=== PATIENT | female | born 1995 | race Caucasian/White ===

== ENCOUNTER 2016-04-29 23:01 | Emergency (ER) | payer OTHER ==
--- NOTE | 2016-04-29 23:51 | XR ---
EXAMINATION TYPE: XR hand complete LT DATE OF EXAM: 04/29/2016 11:45 PM COMPARISON: NONE HISTORY: Finger pain TECHNIQUE: 3 views FINDINGS: I see no fracture nor dislocation. The little finger appears intact. There are no erosions. IMPRESSION: Negative left hand exam.
--- NOTE | 2016-04-30 00:23 | ED ---
Upper Extremity HPI - General Chief Complaint: Extremity Injury, Upper Stated Complaint: finger pain Time Seen by Provider: 04/29/16 23:29 Source: patient Mode of arrival: ambulatory Limitations: no limitations - History of Present Illness Initial Comments: Patient is a 20 year old female with chief complaint of left 5th finger pain after trying to hand a customer grocery and the bag got caught on her finger and pulled it. She states that her finger is popping in and out of socket. Patient states that she has full range of motion. Denies any peripheral paresthias she states that she can make her finger pop in and out. - Related Data Home Medications Medication Instructions Recorded Confirmed No Known Home Medications [No 04/29/16 04/29/16 Known Home Medications] Allergies Allergy/AdvReac Type Severity Reaction Status Date / Time No Known Allergies Allergy Verified 04/29/16 23:11 Review of Systems ROS Statement: Those systems with pertinent positive or pertinent negative responses have been documented in the HPI. ROS Other: All systems not noted in ROS Statement are negative. Past Medical History Past Medical History: No Reported History History of Any Multi-Drug Resistant Organisms: None Reported Past Surgical History: Adenoidectomy, Tonsillectomy Past Psychological History: No Psychological Hx Reported Smoking Status: Never smoker Past Alcohol Use History: None Reported Past Drug Use History: None Reported General Exam - General Exam Comments Initial Comments: Well appearing 20 year old female, no distress. Limitations: no limitations General appearance: alert, in no apparent distress Head exam: Present: atraumatic, normocephalic, normal inspection Eye exam: Present: normal appearance, PERRL, EOMI. Absent: scleral icterus, conjunctival injection, periorbital swelling ENT exam: Present: normal exam, mucous membranes moist Neck exam: Present: normal inspection. Absent: tenderness, meningismus, lymphadenopathy Respiratory exam: Present: normal lung sounds bilaterally. Absent: respiratory distress, wheezes, rales, rhonchi, stridor Cardiovascular Exam: Present: regular rate, normal rhythm, normal heart sounds. Absent: systolic murmur, diastolic murmur, rubs, gallop, clicks GI/Abdominal exam: Present: soft, normal bowel sounds. Absent: distended, tenderness, guarding, rebound, rigid Extremities exam: Present: normal inspection, full ROM, normal capillary refill. Absent: tenderness, pedal edema, joint swelling, calf tenderness Left Hand Wrist exam: Present: normal inspection, full ROM, other (patient is able to sublux 5th finger. ) Back exam: Present: normal inspection, full ROM Neurological exam: Present: alert, oriented X3, CN II-XII intact Psychiatric exam: Present: normal affect, normal mood Skin exam: Present: warm, dry, intact, normal color. Absent: rash Course Vital Signs 04/29/16 04/30/16 23:08 00:30 Temperature 98.2 F 98.9 F Pulse Rate 93 84 Respiratory 18 16 Rate Blood Pressure 142/74 124/78 O2 Sat by Pulse 99 98 Oximetry Medical Decision Making - Medical Decision Making Patient is a 20 year old female with chief complaint of left 5th finger pain after trying to hand a customer grocery and the bag got caught on her finger and pulled it. She states that her finger is popping in and out of socket. Patient states that she has full range of motion. Denies any peripheral paresthias she states that she can make her finger pop in and out. Xray shows no fracture. Patient given finger splint. Patient advised to jeannie tape finger while at work. discussed follow up with ortho if symptoms continue to persist. Discussed patient pulled ligatments around the joint and will take to to heal. - Radiology Data Radiology results: report reviewed Xray negative for fracutre. Disposition Clinical Impression: Finger pain, left, Subluxation of left little finger Disposition: HOME SELF-CARE Condition: Good Instructions: Finger Sprain (ED) Additional Instructions: Patient advised to wear splint. Follow-up with orthopedic if symptoms continue to persist. Return to emergency Department if any alarming signs or symptoms occur. Referrals: Nima Wood DO [Primary Care Provider] - 1-2 days Olvin Santacruz PAC [PHYSICIAN RIDDLER OPERATOR] - 1-2 days Time of Disposition: 00:23
[2016-04-30 02:01] VITALS: BP 124/78; PULSE 84; RESP 16; TEMP 98.9
== END 2016-04-30 00:30 | disposition home or self-care (01) ==
LOC: EC 23:01
DX: S63.207A Unspecified subluxation of left little finger, initial encounter (principal); X58.XXXA Exposure to other specified factors, initial encounter
CPT/HCPCS: 99283

== ENCOUNTER → 2021-02-02 | Outpatient (CLI) | payer OTHER | END | disposition home or self-care (01) | LOC: LABWHC1 13:01 | PROVIDERS: ATTEND Emergency Medicine | DX: U07.1 COVID-19 (principal) | CPT/HCPCS: 87635 ==

== ENCOUNTER 2021-05-19 23:35 | Emergency (ER) | payer MEDICAID ==
[2021-05-20 00:14] VITALS: BP 154/96; PULSE 103; RESP 16; TEMP 97.8
[2021-05-20] MEDS ORDERED: PENICILLIN VK 500MG STARTER 4 TAB BTL PO STA (02:24)
--- NOTE | 2021-05-20 02:27 | ED ---
ENT HPI - General Chief complaint: Dental/Oral Stated complaint: Ear pain, tooth pain Time Seen by Provider: 05/20/21 02:13 Source: patient, RN notes reviewed Mode of arrival: ambulatory Limitations: no limitations - History of Present Illness Initial comments: This is a pleasant 25-year-old female with no significant past medical history. She presents to the emergency department today complaining of right ear pain and right upper dental pain which is bothering her for the last 2 days. Patient denies any difficulty swallowing. No difficulty with speech. No known fever. No vision or hearing complaints. Patient has no history of immunosuppression or diabetes. Nonsmoker. No alcohol or drug abuse. No headache, no fever or chills, no changes in vision or hearing, no sore throat or difficulty with speech, no neck pain, no chest pain or shortness of breath, no abdominal pain, no nausea or vomiting, no changes in urination or bowel movements, no numbness or tingling, no extremity pain, no skin rashes or lesions. MD complaint: tooth pain Onset/Timin -: days(s) Quality: aching Consistency: constant Improves with: none Worsens with: none - Related Data Previous Rx's Medication Instructions Recorded Acetaminophen [Tylenol] 500 mg PO Q4-6H PRN #24 tab 05/20/21 Naproxen [Naprosyn] 375 mg PO Q12HR PRN #20 tablet 05/20/21 Penicillin V Potassium [Pen Vee K] 500 mg PO QID #36 tablet 05/20/21 Allergies Allergy/AdvReac Type Severity Reaction Status Date / Time No Known Allergies Allergy Verified 05/20/21 00:11 Review of Systems ROS Statement: Those systems with pertinent positive or pertinent negative responses have been documented in the HPI. ROS Other: All systems not noted in ROS Statement are negative. Past Medical History Past Medical History: No Reported History History of Any Multi-Drug Resistant Organisms: None Reported Past Surgical History: Adenoidectomy, Tonsillectomy Past Psychological History: No Psychological Hx Reported Past Alcohol Use History: None Reported Past Drug Use History: None Reported General Exam Limitations: no limitations General appearance: alert, in no apparent distress Head exam: Present: atraumatic, normocephalic, normal inspection Eye exam: Present: normal appearance, PERRL, EOMI. Absent: scleral icterus, conjunctival injection, periorbital swelling ENT exam: Present: normal exam, mucous membranes moist, TM's normal bilaterally (Minimal erythema, good light reflex, no bulging or effusion bilaterally). Absent: normal oropharynx, mucous membranes dry, normal external ear exam Expanded Ear exam: Present: normal external inspection Mouth exam: Present: normal external inspection, tongue normal. Absent: drooling, trismus, muffled voice, tongue elevation Teeth exam: Present: normal inspection, dental tenderness # (#1), other (Minimal adjacent inflammation and erythema. No evidence of abscess) Throat exam: normal inspection Neck exam: Present: normal inspection, full ROM. Absent: tenderness, meningismus, lymphadenopathy Respiratory exam: Present: normal lung sounds bilaterally. Absent: respiratory distress, wheezes, rales, rhonchi, stridor Cardiovascular Exam: Present: regular rate, normal rhythm, normal heart sounds. Absent: systolic murmur, diastolic murmur, rubs, gallop, clicks GI/Abdominal exam: Present: soft, normal bowel sounds. Absent: distended, tenderness, guarding, rebound, rigid Extremities exam: Present: normal inspection, full ROM, normal capillary refill. Absent: tenderness, pedal edema, joint swelling, calf tenderness Back exam: Present: normal inspection Neurological exam: Present: alert, oriented X3, CN II-XII intact Psychiatric exam: Present: normal affect, normal mood Skin exam: Present: warm, dry, intact, normal color. Absent: rash Course Vital Signs 05/20/21 00:11 Temperature 97.8 F Pulse Rate 103 H Respiratory 16 Rate Blood Pressure 154/96 O2 Sat by Pulse 98 Oximetry Medical Decision Making - Medical Decision Making Patient presents with right upper dental pain. No evidence of systemic infection. We'll cover her with Pen-Vee K into the patient to get to a dentist. There was minimal erythema and inflammation adjacent to tooth #1. Patient counseled on findings. Counseled on treatment plan. All questions answered. Patient was told to return to the ER for any signs or symptoms worsen. Told to return immediately if any other problems arise. All questions answered. Treatment plan discussed. Patient in agreement Every effort has been made to ensure accuracy of this dictation. However, due to the limitations of electronic medical records and dictation devices, errors in charting still occur. Disposition Clinical Impression: Dental infection, Otalgia of right ear Disposition: HOME SELF-CARE Condition: Good Instructions (If sedation given, give patient instructions): Dental Abscess (ED) Additional Instructions: Follow-up with your regular physician as directed. Return to the ER immediately if any symptoms worsen, new symptoms arise, or any other problems develop. Follow-up with the dentist as soon as possible. Prescriptions: Naproxen [Naprosyn] 375 mg PO Q12HR PRN #20 tablet PRN Reason: Pain Penicillin V Potassium [Pen Vee K] 500 mg PO QID #36 tablet Acetaminophen [Tylenol] 500 mg PO Q4-6H PRN #24 tab PRN Reason: Pain Is patient prescribed a controlled substance at d/c from ED?: No Referrals: None,Stated [Primary Care Provider] - 1-2 days Dayan Neely DDS [STAFF PHYSICIAN] - 05/31/21 Time of Disposition: 02:26
== END 2021-05-20 02:38 | disposition home or self-care (01) ==
LOC: EC 23:35
DX: H92.01 Otalgia, right ear (principal); K04.7 Periapical abscess without sinus
CPT/HCPCS: 99282

== ENCOUNTER 2022-09-27 11:01 | Emergency (ER) | payer MEDICAID ==
--- NOTE | 2022-09-27 11:21 | ED ---
Skin/Abscess/FB HPI - General Chief complaint: Recheck/Abnormal Lab/Rx Stated complaint: scratched by bat Time Seen by Provider: 09/27/22 11:12 Source: patient, RN notes reviewed Mode of arrival: ambulatory Limitations: no limitations - History of Present Illness Initial comments: This is a 26-year-old female who presents to the emergency department for a cat scratch. Last night she had a bat in her house, and her cats tried to catch it. Her cat was scratched by the bat, and then proceeded to scratch her to the right arm. Her cats do not have the rabies vaccine. The scratch is not painful. Tetanus vaccine is up to date. She is inquiring as to if she needs the rabies vaccine. Denies any fevers, chills, sore throat, cough, dyspnea, chest pain, palpitations, abdominal pain, nausea, vomiting, diarrhea, back pain, or headaches. MD complaint: rash - Related Data Previous Rx's Medication Instructions Recorded Acetaminophen [Tylenol] 500 mg PO Q4-6H PRN #24 tab 05/20/21 Naproxen [Naprosyn] 375 mg PO Q12HR PRN #20 tablet 05/20/21 Penicillin V Potassium [Pen Vee K] 500 mg PO QID #36 tablet 05/20/21 Allergies Allergy/AdvReac Type Severity Reaction Status Date / Time No Known Allergies Allergy Verified 09/27/22 11:08 Review of Systems ROS Statement: Those systems with pertinent positive or pertinent negative responses have been documented in the HPI. ROS Other: All systems not noted in ROS Statement are negative. Past Medical History Past Medical History: No Reported History History of Any Multi-Drug Resistant Organisms: None Reported Past Surgical History: Adenoidectomy, Tonsillectomy Past Psychological History: No Psychological Hx Reported Smoking Status: Never smoker Past Alcohol Use History: Occasional Past Drug Use History: None Reported General Exam Limitations: no limitations General appearance: alert, in no apparent distress Head exam: Present: atraumatic, normocephalic, normal inspection Respiratory exam: Present: normal lung sounds bilaterally. Absent: respiratory distress, wheezes, rales, rhonchi, stridor Cardiovascular Exam: Present: regular rate, normal rhythm, normal heart sounds. Absent: systolic murmur, diastolic murmur, rubs, gallop, clicks Neurological exam: Present: alert, oriented X3, CN II-XII intact Psychiatric exam: Present: normal affect, normal mood Skin exam: Present: other (Minor 1cm abrasion to the dorsal aspect of the right wrist. No tenderness, surrounding erythema, or drainage.) Course Vital Signs 09/27/22 09/27/22 11:06 12:58 Temperature 98.1 F 97.6 F Pulse Rate 92 80 Respiratory 20 14 Rate Blood Pressure 153/97 128/91 O2 Sat by Pulse 98 96 Oximetry Medical Decision Making - Medical Decision Making This is a 26 year old female who presents to the emergency department for a cat scratch. Was pt. sent in by a medical professional or institution? @ -No Did you speak to anyone other than the patient for history? @ -No Did you review nursing and triage notes? @ -Yes, and I agree, it is accurate with regards to the patient's symptoms. Were old charts reviewed? @ -No Differential Diagnosis? @ -Not applicable EKG interpreted by me (3pts min.)? @ -Not obtained X-rays interpreted by me (1pt min.)? @ -Not obtained CT interpreted by me (1pt min.)? @ -Not obtained U/S interpreted by me (1pt. min.)? @ -Not obtained What testing was considered but not performed? (CT, X-rays, U/S, labs)? Why? @ -None What meds were considered but not given? Why? @ -None Did you discuss the management of the patient with other professionals? @ -No Did you reconcile home meds? @ -No Was smoking cessation discussed for >3mins.? @ -No Was critical care preformed (if so, how long)? @ -No Were there social determinants of health that impacted care today? How? (Homelessness, low income, unemployed, alcoholism, drug addiction, transportation, low edu. Level, literacy, decrease access to med. care, long-term, rehab)? @ -No Was there de-escalation of care discussed even if they declined? (Discuss DNR or withdrawal of care, Hospice)? @ -No What co-morbidities impacted this encounter? (DM, HTN, Smoking, COPD, CAD, Cancer, CVA, Hep., AIDS, mental health diagnosis, sleep apnea, morbid obesity)? @ -None Was patient admitted / discharged? @ -Discharged. Discussed with the patient that while it is unlikely that she would contract rabies from this, if it would make her more comfortable, we can proceed with the rabies vaccine. Patient wishes to proceed. She was given the rabies immunoglobulin and the initial dose of the rabies vaccine in the em ergency department. A prescription was provided to have the rabies vaccine repeated on days 3, 7, and 14 at [facility]. Otherwise advised ibuprofen and Tylenol if she develops any pain. Undiagnosed new problem with uncertain prognosis? @ -None Drug Therapy requiring intensive monitoring for toxicity (Heparin, Nitro, Insulin, Cardizem)? @ -None Were any procedures done? @ -None Diagnosis/symptom? @ -Cat scratch Acute, or Chronic, or Acute on Chronic? @ -Acute Uncomplicated (without systemic symptoms) or Complicated (systemic symptoms)? @ -Uncomplicated Side effects of treatment? @ -None Exacerbation, Progression, or Severe Exacerbation] @ -Not applicable Poses a threat to life or bodily function? @ -No Return precautions reviewed in depth, the patient is instructed to return to the emergency department with any new, worsening, or concerning symptoms. Patient verbalized understanding. This case was discussed in detail with the attending ED physician, Dr. Mcconnell. Presentation, findings, and treatment plan discussed in detail as well. Disposition Clinical Impression: Cat scratch Disposition: HOME SELF-CARE Instructions (If sedation given, give patient instructions): Rabies Vaccine (By injection), Rabies Immune Globulin (By injection) Additional Instructions: Return to the emergency department with any new, worsening, or concerning symptoms. You will need to go to [facility] on days 3 (09/30), 7(10/04), and 14(10/11) for the rest of the rabies vaccines. Alternate with ibuprofen and Tylenol as needed for pain relief. Follow up with your primary care provider in 1-2 days. Is patient prescribed a controlled substance at d/c from ED?: No Referrals: None,Stated [Primary Care Provider] - 1-2 days
[2022-09-27] MEDS ORDERED: RABIES IMM GLOB 300 UNIT/2 ML VIAL IM ONE (11:33)
[2022-09-27] MEDS ORDERED: RABIES VACCINE (PCEC) 2.5 UNIT KIT IM ONE (11:33)
[2022-09-27 13:00] VITALS: BP 128/91; PULSE 80; RESP 14; TEMP 97.6
== END 2022-09-27 13:00 | disposition home or self-care (01) ==
LOC: EC 11:01
DX: S51.851A Open bite of right forearm, initial encounter (principal); Z29.14 Encounter for prophylactic rabies immune globulin; W55.03XA Scratched by cat, initial encounter
CPT/HCPCS: 90377; 90471; 90675; 96372; 99283

== ENCOUNTER 2023-02-01 23:01 | Emergency (ER) | payer MEDICAID, OTHER ==
--- NOTE | 2023-02-01 23:36 | ED ---
Skin/Abscess/FB HPI - General Chief complaint: Needlestick/Exposure Stated complaint: [facility]-Poked by needle Time Seen by Provider: 02/01/23 23:33 Source: patient, RN notes reviewed Mode of arrival: ambulatory Limitations: no limitations - History of Present Illness Initial comments: Patient is a 27-year-old female presented ER with chief complaint of a needle stick. Patient reports she was cleaning a room and went to pick something up and was poked by a surgical needle in her left index finger. Patient reports she is up-to-date on vaccinations. Patient has no other complaints at this time. - Related Data Previous Rx's Medication Instructions Recorded Acetaminophen [Tylenol] 500 mg PO Q4-6H PRN #24 tab 05/20/21 Naproxen [Naprosyn] 375 mg PO Q12HR PRN #20 tablet 05/20/21 Penicillin V Potassium [Pen Vee K] 500 mg PO QID #36 tablet 05/20/21 Allergies Allergy/AdvReac Type Severity Reaction Status Date / Time No Known Allergies Allergy Verified 02/01/23 23:32 Review of Systems ROS Statement: Those systems with pertinent positive or pertinent negative responses have been documented in the HPI. ROS Other: All systems not noted in ROS Statement are negative. Past Medical History Past Medical History: No Reported History History of Any Multi-Drug Resistant Organisms: None Reported Past Surgical History: Adenoidectomy, Tonsillectomy Past Psychological History: No Psychological Hx Reported Smoking Status: Never smoker Past Alcohol Use History: Occasional Past Drug Use History: None Reported General Exam Limitations: no limitations General appearance: alert, in no apparent distress Respiratory exam: Present: normal lung sounds bilaterally. Absent: respiratory distress, wheezes, rales, rhonchi, stridor Cardiovascular Exam: Present: regular rate, normal rhythm, normal heart sounds. Absent: systolic murmur, diastolic murmur, rubs, gallop, clicks Neurological exam: Present: alert, oriented X3, CN II-XII intact Psychiatric exam: Present: normal affect, normal mood Skin exam: Present: warm, dry, intact, normal color, other (Minimal superficial laceration to distal end of left second digit. Patient is full range of motion and sensation intact. No active bleeding. 2+ radial pulse.). Absent: rash Course Vital Signs 02/01/23 23:30 Temperature 97.8 F Pulse Rate 79 Respiratory 18 Rate Blood Pressure 156/88 O2 Sat by Pulse 98 Oximetry Medical Decision Making - Medical Decision Making Was pt. sent in by a medical professional or institution (, JANINE, EMBROIDERY FINISHER, urgent care, hospital, or detention...) When possible be specific @ -[facility] Did you speak to anyone other than the patient for history (EMS, parent, family, police, friend...)? What history was obtained from this source @ -No Did you review nursing and triage notes (agree or disagree)? Why? @ -I reviewed and agree with nursing and triage notes Were old charts reviewed (outside hosp., previous admission, EMS record, old EKG, old radiological studies, urgent care reports/EKG's, detention records)? Report findings @ -No old charts were reviewed Differential Diagnosis (chest pain, altered mental status, abdominal pain women, abdominal pain men, vaginal bleeding, weakness, fever, dyspnea, syncope, headache, dizziness, GI bleed, back pain, seizure, CVA, palpatations, mental health, musculoskeletal)? @ -Needlestick, laceration, abrasion, cellulitis EKG interpreted by me (3pts min.). @ -None X-rays interpreted by me (1pt min.). @ -None done CT interpreted by me (1pt min.). @ -None done U/S interpreted by me (1pt. min.). @ -None done What testing was considered but not performed or refused? (CT, X-rays, U/S, labs)? Why? @ -None What meds were considered but not given or refused? Why? @ -None Did you discuss the management of the patient with other professionals (professionals i.e. JANINE Bruno, EMBROIDERY FINISHER, lab, RT, psych nurse, web content & social media manager, gluing machine operator automatic, teacher, administrative hearing officer, case resolution specialist)? Give summary @ -No Was smoking cessation discussed for >3mins.? @ -No Was critical care preformed (if so, how long)? @ -No Were there social determinants of health that impacted care today? How? (Homelessness, low income, unemployed, alcoholism, drug addiction, transportation, low edu. Level, literacy, decrease access to med. care, custodial, rehab)? @ -No Was there de-escalation of care discussed even if they declined (Discuss DNR or withdrawal of care, Hospice)? DNR status @ -No What co-morbidities impacted this encounter? (DM, HTN, Smoking, COPD, CAD, Cancer, CVA, ARF, Chemo, Hep., AIDS, mental health diagnosis, sleep apnea, morbid obesity)? @ -None Was patient admitted / discharged? Hospital course, mention meds given and route, prescriptions, significant lab abnormalities, going to OR and other pertinent info. @ -Discharge. Patient is a 27-year-old female presented ER with chief complaint of a needle stick. Upon examination, patient's vital signs are stable. Physical exam exam was significant for a minimal superficial laceration to distal left second finger. No active bleeding. Patient is full range of motion and sensation is intact. 2+ radial pulse. [facility] labs were obtained. I discussed with patient return parameters. Patient will be discharged in stable condition with follow- up to PCP. Patient expressed understanding and agreement with care plan. Undiagnosed new problem with uncertain prognosis? @ -No Drug Therapy requiring intensive monitoring for toxicity (Heparin, Nitro, Insulin, Cardizem)? @ -No Were any procedures done? @ -No Diagnosis/symptom? @ -Needlestick injury Acute, or Chronic, or Acute on Chronic? @ -Acute Uncomplicated (without systemic symptoms) or Complicated (systemic symptoms)? @ -Uncomplicated Side effects of treatment? @ -No Exacerbation, Progression, or Severe Exacerbation? @ -No Poses a threat to life or bodily function? How? (Chest pain, [place], [place], pneumonia, PE, COPD, DKA, ARF, appy, cholecystitis, CVA, Diverticulitis, Homicidal, Suicidal, threat to staff... and all critical care pts) @ -Possibly if the needle was contaminated with infectious bodily fluids. Patient may contract infection. - Lab Data Lab Results 02/01/23 02/01/23 Range/Units 23:15 23:15 Hep Bs Antigen Nonreactive Hep Bs Antibody (Negative) Hep Bs Antibody, Quant 3.5 mIU/mL Hep B Core Total Ab Nonreactive Hep C IgG Ab Nonreactive HIV-1 Antibody Non-Reactive (Non-Reactive) HIV Ag/Ab Interpret HIV p24 Antibody Non-Reactive (Non-Reactive) HIV-2 Antibody Non-Reactive (Non-Reactive) HIV P24 Antigen Non-Reactive (Non-Reactive) Disposition Clinical Impression: Needle stick injury Disposition: HOME SELF-CARE Condition: Stable Additional Instructions: Please return to the Emergency Department if symptoms worsen or any other concerns. Is patient prescribed a controlled substance at d/c from ED?: No Referrals: None,Stated [Primary Care Provider] - 1-2 days Time of Disposition: 23:46
[2023-02-01 23:38] VITALS: BP 156/88; PULSE 79; RESP 18; TEMP 97.8
[2023-02-02 09:01] LABS: Hepatitis B Surface Antigen Nonreactive; Hepatitis C IgG Antibody Nonreactive
[2023-02-02 09:26] LABS: Hepatitis B Surface AB- Quant 3.5 mIU/mL
[2023-02-02 11:23] LABS: HIV 2 AB Non-Reactive (Non-Reactive); HIV AB P24 Non-Reactive (Non-Reactive); HIV P24 AG Non-Reactive (Non-Reactive)
== END 2023-02-02 00:03 | disposition home or self-care (01) ==
LOC: EC 23:01
DX: S60.941A Unspecified superficial injury of left index finger, initial encounter (principal); Z77.21 Contact with and (suspected) exposure to potentially hazardous body fluids; W46.0XXA Contact with hypodermic needle, initial encounter; Y99.0 Civilian activity done for income or pay
CPT/HCPCS: 36415; 86704; 86706; 86803; 87340; 87390; 99282